=== PATIENT | male | born 1955 | race Caucasian/White ===

== ENCOUNTER → 2016-06-12 | Outpatient (CLI) | payer MEDICARE ==
[~2016-06-12] MED LIST: AMLO10TA2 PO; ASPI325T4 PO; ATOR40TA59 PO; CARV12.52 PO; HYDR25TA9 PO; LISI40TA PO; NITR0.4T SL; WARF5TAB7 PO
--- NOTE | 2016-06-12 12:02 | CARD ---
APPROVED REPORT EXAM: Two-dimensional and M-mode echocardiogram with Doppler and color Doppler. Other Information Quality : ExcellentHR: 60bpm Rhythm : NSR INDICATION CAD RISK FACTORS Hypertension Obesity Family History 2D DIMENSIONS RVDd2.8 (2.9-3.5cm)Left Atrium(2D)4.6 (1.6-4.0cm) IVSd1.1 (0.7-1.1cm)Aortic Root(2D)3.4 (2.0-3.7cm) LVDd5.4 (3.9-5.9cm)LVOT Diameter2.3 (1.8-2.4cm) PWd1.2 (0.7-1.1cm)LVDs3.6 (2.5-4.0cm) FS (%) 34.4 %SV89.9 ml LVEF(%)63.0 (>50%) Aortic Valve AoV Peak Leoncio.136.8cm/sAoV VTI31.5cm AO Peak GR.7.5mmHgLVOT Peak Leoncio.106.4cm/s AO Mean GR.4mmHgAVA (VMAX)3.14cm2 Mitral Valve MV E Wpqciwwo61.2cm/sMV E Peak Gr.4mmHg MV DECEL [id number] A Kionntwd07.8cm/s MV E Mean Gr.2mmHgE/A Ratio0.8 MV A Iaukelok651dq Pulmonary Valve PV Peak Swmknbyk603.5cm/s Tricuspid Valve TR P. Edyepxtb897nz/sTR Peak Gr.25mmHg Pulmonary Vein S1 Owgxmqgd97.4cm/sD2 Qgktryuj40.1cm/s PVa hdentdil55zgym LEFT VENTRICLE The left ventricle is normal size. There is mild concentric left ventricular hypertrophy. Left ventri erendira systolic function is normal. The Ejection Fraction is 60-65%. There is normal LV segmental wall m otion. Transmitral Doppler flow pattern is Grade I-abnormal relaxation pattern. RIGHT VENTRICLE The right ventricle is normal size. There is normal right ventricular wall thickness. The right ventr icular systolic function is normal. There is a pacemaker in the RV/RA ATRIA The left atrium size is normal. The right atrium size is normal. The interatrial septum is intact wit h no evidence for an atrial septal defect or patent foramen ovale as noted on 2-D or Doppler imaging. AORTIC VALVE Not well visualized. Doppler and Color Flow revealed no significant aortic regurgitation. There is no significant aortic valvular stenosis. MITRAL VALVE The mitral valve leaflets are mildly thickened. There is no evidence of mitral valve prolapse or sten osis. Doppler and Color Flow revealed mild mitral regurgitation. TRICUSPID VALVE The tricuspid valve is normal in structure and function. Doppler and Color Flow revealed trace tricus pid regurgitation. The pulmonary artery systolic pressure is estimated at 30 mmHg. There is no tricu spid valve stenosis. PULMONIC VALVE Doppler and Color Flow revealed no pulmonic valvular regurgitation. There is no pulmonic valvular robina nosis. GREAT VESSELS The aortic root is normal in size. The ascending aorta is normal in size. The IVC is normal in size a nd collapses >50% with inspiration. PERICARDIAL EFFUSION There is no evidence of significant pericardial effusion. Critical Notification Critical Value: No <Conclusion> Left ventricle systolic function is normal. The Ejection Fraction is 60-65%. There is normal LV segmental wall motion. There is a pacemaker in the RV/RA
== END | disposition home or self-care (01) ==
LOC: ECHO 08:00
PROVIDERS: ATTEND Internal Medicine Cardiovascular Disease
DX: I25.118 Atherosclerotic heart disease of native coronary artery with other forms of angina pectoris (principal); I10 Essential (primary) hypertension; E66.9 Obesity, unspecified; Z82.49 Family history of ischemic heart disease and other diseases of the circulatory system
CPT/HCPCS: 93306

== ENCOUNTER → 2016-06-25 | Outpatient (CLI) | payer MEDICARE ==
[~2016-06-25] MED LIST changes: +IOHEXOL 300 MG/ML 75 ML VIAL IV ONE
--- NOTE | 2016-06-25 12:10 | RAD ---
CT study of the abdomen and pelvis with and without contrast Clinical indications: Hematuria. CT urogram. Technique: Noncontrast helical CT scanning of the abdomen and pelvis was performed. Following IV infusion of 75 cc of Omnipaque 300, helical CT scanning of the abdomen and pelvis was performed using the CT urogram protocol. A 3-D reconstructed CT urogram was generated. PQRS Compliance Statement: One or more of the following individualized dose reduction techniques were utilized for this examination: 1. Automated exposure control 2. Adjustment of the mA and/or kV according to patient size 3. Use of iterative reconstruction technique Comparison: None available. Findings: No urinary tract stone or hydronephrosis or hydroureter is seen. There is a 1.4 cm hypodense nodule of the lateral mid aspect of the right kidney which measures 5 Hounsfield units consistent with a cyst. There is a smaller subcentimeter hypodense nodule of the lower pole of the right kidney. Due to it's small size, it is indeterminate. No left renal mass is seen. No filling defect of the upper urinary tract is seen on either side. There is mild circumferential wall thickening of the urinary bladder. No other filling defect of the urinary bladder is seen. Prostate gland does not appear to be abnormally enlarged measuring 4.2 cm in greatest transverse dimension. Seminal vesicles are symmetric. There is diffuse fatty infiltration of the liver. The spleen is not enlarged. Fatty atrophy of the pancreas is seen. The gallbladder is normal and no extra hepatic biliary ductal dilatation is seen. No adrenal mass is seen. No focal aneurysmal dilatation of the abdominal aorta is seen. No enlarged abdominal or pelvic lymphadenopathy is seen. The appendix is distended measuring 10 mm in size. No periappendiceal inflammatory change is seen. No obstructive bowel pattern is seen. No free air or free fluid or mesenteric inflammatory change is seen. Mild left lung base atelectasis is seen. Calcified granuloma of the right lateral lung base is seen. No osteolytic process is seen. IMPRESSION: No urinary tract stone or hydronephrosis or hydroureter is seen. Small right renal cyst. Small subcentimeter indeterminate nodule of the lower pole of the right kidney most likely representing another cyst. This may be further evaluated with renal sonography. If this cannot be seen sonographically, then a follow-up abdomen CT with IV contrast in one year is recommended. Mild circumferential wall thickening of the urinary bladder. This may be due to incomplete distention but also be seen with mild cystitis if there are clinical findings of such. Muscle hypertrophy may have this appearance as well although the prostate gland does not appear to be abnormally enlarged and does not indent the floor of the urinary bladder. The appendix is distended measuring up to 10 mm. This may be seen normally but correlation with any clinical findings in this area is recommended. No periappendiceal inflammatory change or free fluid is evident. Fatty infiltration of the liver.
== END | disposition home or self-care (01) ==
LOC: CT 08:46
PROVIDERS: ATTEND Internal Medicine
DX: R31.9 Hematuria, unspecified (principal)
CPT/HCPCS: 74178; Q9967

== ENCOUNTER 2017-10-22 08:21 | Outpatient (CLI) | payer BC ==
[2017-10-22] MEDS ORDERED: ceFAZolin SODIUM 3 GM in IV DEXTROSE 5% 100ML 100 ML IV (09:00)
[2017-10-22] MEDS: BACITRACIN 50,000 UNIT in IV NORMAL SALINE 250ML 250 ML IRR (09:00)
[2017-10-22 09:18] LABS: HEMATOCRIT 42.1 % (39.0-53.0); HEMOGLOBIN 14.6 g/dL (13.0-17.5); MEAN CORPUSCULAR HEMOGLOBIN 32 pg (25-35); MEAN CORPUSCULAR HGB CONC 35 g/dL (31-37); MEAN CORPUSCULAR VOLUME 91 fL (79-100); PLATELET COUNT 260 x10^3/uL (140-400); RED BLOOD COUNT 4.61 x10^6/uL (4.30-5.70); WHITE BLOOD COUNT 8.6 x10^3/uL (4.0-11.0)
[2017-10-22 09:31] LABS: INR 1.5 (0.8-1.1); PROTHROMBIN TIME PATIENT 17.1 SEC (11.7-14.0)
[2017-10-22] MEDS ORDERED: LIDOCAINE 2%/EPI 1:100,000 20 ML VIAL. (09:50)
[2017-10-22] MEDS ORDERED: MIDAZOLAM HCL/PF 2 MG/2 ML VIAL. (10:37)
[2017-10-22] MEDS ORDERED: fentaNYL PF VIAL 100 MCG/2 ML VIAL (10:37)
[2017-10-22] MEDS: LIDOCAINE 2%/EPI 1:100,000 20 ML VIAL. IJ (11:00)
[2017-10-22] MEDS: MIDAZOLAM HCL/PF 2 MG/2 ML VIAL. IV (11:00)
[2017-10-22] MEDS: fentaNYL PF VIAL 100 MCG/2 ML VIAL IV (11:00)
[2017-10-22] MEDS ORDERED: NO ANTICOAGULANT THERAPY. MC (11:15)
== END 2017-10-22 12:45 | disposition home or self-care (01) ==
LOC: CCL 08:21
DX: Z45.02 Encounter for adjustment and management of automatic implantable cardiac defibrillator (principal); I25.5 Ischemic cardiomyopathy; I49.01 Ventricular fibrillation; Z98.890 Other specified postprocedural states; I25.10 Atherosclerotic heart disease of native coronary artery without angina pectoris; Z79.01 Long term (current) use of anticoagulants; I11.0 Hypertensive heart disease with heart failure; I50.9 Heart failure, unspecified; E78.00 Pure hypercholesterolemia, unspecified; I48.91 Unspecified atrial fibrillation; E66.9 Obesity, unspecified; Z68.38 Body mass index [BMI] 38.0-38.9, adult; Z87.442 Personal history of urinary calculi
CPT/HCPCS: 33263; 36415; 85027; 85610; 99152; 99153; C1721; J0690; J2250; J3010; J3490; J7050

== ENCOUNTER → 2018-02-07 | Outpatient (CLI) | payer BC ==
[2017-10-22 12:34] VITALS: BP 155/86
[~2018-02-07] MED LIST changes: +AMIO200T4 PO; -AMLO10TA2 PO; +AMLO10TA6 PO; -ASPI325T4 PO; +ASPI325T8 PO; -IOHEXOL 300 MG/ML 75 ML VIAL IV ONE; +LISI-130 PO; -LISI40TA PO; +WARF-31 PO; +WARF4TAB68 PO; -WARF5TAB7 PO
--- NOTE | 2018-02-07 10:51 | CARD ---
MR#: [id number] Date of Study: 02/07/2018 Ordering Physician: LENI DISLA, Referring Physician: LENI DISLA Tech: Fariha Rizo RDCS APPROVED REPORT EXAM: Two-dimensional and M-mode echocardiogram with Doppler and color Doppler. Other Information Quality : GoodHR: 60bpm Rhythm : NSR INDICATION Arrhythmia 2D DIMENSIONS RVDd4.0 (2.9-3.5cm)Left Atrium(2D)5.4 (1.6-4.0cm) IVSd1.4 (0.7-1.1cm)Aortic Root(2D)3.5 (2.0-3.7cm) LVDd4.5 (3.9-5.9cm)LVOT Diameter1.9 (1.8-2.4cm) PWd1.3 (0.7-1.1cm)LVDs3.2 (2.5-4.0cm) FS (%) 29.9 %SV53.6 ml LVEF(%)57.1 (>50%) M-Mode DIMENSIONS Left Atrium(MM)4.49 (2.5-4.0cm)Aortic Root3.44 (2.2-3.7cm) Aortic Valve AoV Peak Leoncio.124.1cm/sAoV VTI30.5cm AO Peak GR.6.2mmHgLVOT Peak Leoncio.97.9cm/s AO Mean GR.3mmHgAVA (VMAX)2.25cm2 GEM (VTI)2.10cm2 Mitral Valve MV E Jpyazaor90.0cm/sMV E Peak Gr.6mmHg MV DECEL PAEU295pxML A Dhyakuxn454.1cm/s MV E Mean Gr.2mmHgE/A Ratio0.9 MV A Dcolhrrg901wh Pulmonary Valve PV Peak Bjchzmtx782.9cm/s Tricuspid Valve TR P. Gkunvcxl042ci/sRAP GNYAMFBO3ajUv TR Peak Gr.48piTwYXXZ66bdXh Pulmonary Vein S1 Qtdinqas92.5cm/sD2 Guntwdgi42.0cm/s PVa srqfyloo212csvc LEFT VENTRICLE The left ventricle is normal size. There is mild concentric left ventricular hypertrophy. The left ve ntricular systolic function is normal. The Ejection Fraction is 55-60%. There is normal LV segmental wall motion. Transmitral Doppler flow pattern is Grade I-abnormal relaxation pattern. RIGHT VENTRICLE The right ventricle is normal size. There is normal right ventricular wall thickness. The right ventr icular systolic function is normal. ATRIA The left atrium is mildly dilated. The right atrium is mildly dilated. The interatrial septum is inta ct with no evidence for an atrial septal defect or patent foramen ovale as noted on 2-D or Doppler im aging. AORTIC VALVE The aortic valve is calcified but opens well. The aortic valve is trileaflet. Doppler and Color Flow revealed no significant aortic regurgitation. There is no significant aortic valvular stenosis. MITRAL VALVE The mitral valve is thickened but opens well. There is no evidence of mitral valve prolapse. There is no mitral valve stenosis. Doppler and Color-flow revealed trace mitral regurgitation. TRICUSPID VALVE The tricuspid valve is normal in structure and function. Doppler and Color Flow revealed trace to mil d tricuspid regurgitation. The PA pressure was estimated at 31 mmHg. There is no tricuspid valve prol apse or vegetation. PULMONIC VALVE The pulmonary valve is normal in structure and function. Doppler and Color Flow revealed trace pulmon ic valvular regurgitation. There is no pulmonic valvular stenosis. GREAT VESSELS The aortic root is mildly enlarged. The ascending aorta is Mildly dilated. PERICARDIAL EFFUSION There is no evidence of significant pericardial effusion. Fat pad noted. Critical Notification Critical Value: No <Conclusion> The left ventricular systolic function is normal. The Ejection Fraction is 55-60%. There is normal LV segmental wall motion. Pacer wire noted right atrium and right ventricle. Trace mitral regurgitation. Trace to mild tricuspid regurgitation. The PA pressure was estimated at 31 mmHg. There is no evidence of significant pericardial effusion. Signed by : Leni Disla, Electronically Approved : 02/07/2018 10:50:09
== END | disposition home or self-care (01) ==
LOC: ECHO 09:34
PROVIDERS: ATTEND Internal Medicine Cardiovascular Disease
DX: I49.01 Ventricular fibrillation (principal); I11.0 Hypertensive heart disease with heart failure; I50.9 Heart failure, unspecified; E78.00 Pure hypercholesterolemia, unspecified; I25.10 Atherosclerotic heart disease of native coronary artery without angina pectoris; I48.91 Unspecified atrial fibrillation; E66.9 Obesity, unspecified; Z87.442 Personal history of urinary calculi; Z68.38 Body mass index [BMI] 38.0-38.9, adult
CPT/HCPCS: 93306

== ENCOUNTER → 2020-03-27 | Outpatient (CLI) | payer BC ==
[2017-10-22 12:34] VITALS: BP 155/86
[~2020-03-27] MED LIST changes: -AMIO200T4 PO; +AMIO200T6 PO; +AMLO-187 PO; -AMLO10TA6 PO; +CARV12.511 PO; -CARV12.52 PO; +HYDR-2145 PO; -HYDR25TA9 PO; -NITR0.4T SL; +NITR0.4T24 SL; +REGADENOSON 0.4 MG/5 ML DISP.SYRIN. IV ONE
--- NOTE | 2020-03-28 14:08 | RAD ---
MR#: [id number] Date of Study: 03/28/2020 Ordering Physician: LENI LABOY, Referring Physician: STANLEY SANTIAGO Tech: RAQUEL Bernal ARRT (R) (N) APPROVED REPORT Test Type: Pharmacological Stress Nurse/Tech: Antonio Joaquin RN Test Indications: CAD Cardiac History: CAD- [place] x3, PTCA, Increased Cholesterol, PPM, HTN, See EMR Medications: ASA, See EMR Medical History: DM, See EMR Resting ECG: SR Resting Heart Rate: 60 bpm Resting Blood Pressure: 157/81mmHg Pretest Chest Pain: No chest pain Nurse/Tech Notes Lungs CTA, Heart tones regular Pharm. Details Pharmacologic stress testing was performed using 0.4mg per 5ml of regadenoson given intravenously ove r 7-10 seconds. Stress Symptoms No chest pain or symptoms. POST EXERCISE Reason for Termination: Infusion complete Max HR: 75 bpm Max Blood Pressure: 163/79mmHg Blood Pressure response to exercise: Normal blood pressure response during stress. Heart Rate response to exercise: WNL Chest Pain: No. Arrhythmia: No. ST Change: No. INTERPRETATION Stress EKG Conclusion: No evidence of stress induced EKG changes. Imaging Protocol IMAGE PROTOCOL: Rest Tc-99m/stress Tc-99m 2 days Rest: Stress: Viability: Radiopharm.Tc99m FhajyoesrOf45m Sestamibi Whtw75yQe 33mCi Img Date 03/27/2020 03/28/2020 Inj-Img Itrw03xxx. 90min. Rest Admin Site:IV - Left HandAdministrator: RAQUEL Bernal, GEETHAT (R)(N) Stress Admin Site: Roofer Applicator: RT Mary (R)(N) STRESS DATA End Diast. Vol.149.0mlLVEDV index BSA61.0ml End Syst. Vol.58.0mlLVESV index BSA24.0ml Myocardial Rful966.0gEject. Fiwinfyy44.0% Stress Scores Regional WT0.00Summed WT9.00 Regional WM0.00Summed WM4.00 LV Perfusion There is a small fixed apical perfusion defect suggestive of prior infarct versus apical thinning. Wall Motion Normal LV systolic function. EF 65% LV Perf. Quant 17 Seg. SSS3.00 17 Seg. SRS1.00 17 Seg. SDS2.00 Stress Defect Extent (% LAD)6.90Rest Defect Extent (% LAD)0.00Rev. Defect Extent (% LAD)6.90 Stress Defect Extent (% LCX) 0.00Rest Defect Extent (% LCX)0.00Rev. Defect Extent (% LCX)0.00 Stress Defect Extent (% RCA)0.00Rest Defect Extent (% RCA)2.20Rev. Defect Extent (% RCA)0.00 Stress Defect Extent (% MILI)5.20Rest Defect Extent (% MILI)1.70Rev. Defect Extent (% MILI)5.00 Other Information Quality:Good Risk Assessment: Low-Moderate Risk Conclusion 1. No evidence of stress induced EKG changes 2. Small fixed apical defect as noted above. 3. Normal EF at > 55% 4. Low to moderate risk study Signed by : Rob Rod, Electronically Approved : 03/28/2020 14:07:31
== END ==
LOC: NM 09:32
PROVIDERS: ATTEND Internal Medicine Cardiovascular Disease
DX: I25.10 Atherosclerotic heart disease of native coronary artery without angina pectoris (principal); I10 Essential (primary) hypertension; I25.2 Old myocardial infarction
CPT/HCPCS: 78452; A9500; 93017; J2785

== ENCOUNTER → 2020-03-28 | Outpatient (CLI) | payer BC ==
[2017-10-22 12:34] VITALS: BP 155/86
[~2020-03-28] MED LIST changes: -REGADENOSON 0.4 MG/5 ML DISP.SYRIN. IV ONE
--- NOTE | 2020-03-28 13:53 | CARD ---
MR#: [id number] Date of Study: 03/28/2020 Ordering Physician: LENI LABOY, Referring Physician: LENI LABOY, Tech: Theresa Moon APPROVED REPORT EXAM: Two-dimensional and M-mode echocardiogram with Doppler and color Doppler. Other Information Quality : FairHR: 60bpm Technically limited study due to Obesity INDICATION Cardiac Disease: CAD Surgery/Intervention ICD/Pacemaker: Date: RISK FACTORS Hypertension Hyperlipidemia Diabetes 2D DIMENSIONS RVDd3.7 (2.9-3.5cm)Left Atrium(2D)4.1 (1.6-4.0cm) IVSd1.6 (0.7-1.1cm)Aortic Root(2D)3.5 (2.0-3.7cm) LVDd5.9 (3.9-5.9cm)LVOT Diameter2.1 (1.8-2.4cm) PWd1.4 (0.7-1.1cm)LVDs4.0 (2.5-4.0cm) FS (%) 32.4 %SV104.4 ml LVEF(%)59.9 (>50%) Aortic Valve AoV Peak Leoncio.132.7cm/sAoV VTI31.0cm AO Peak GR.7.0mmHgLVOT Peak Leoncio.113.9cm/s LVOT VTI 24.93cmAO Mean GR.4mmHg GEM (VMAX)2.11zt8LNF (VTI)2.87cm2 Mitral Valve MV E Getdbsej53.0cm/sMV DECEL CJLH442rn MV A Blfytgul93.2cm/sMV CDA16og E/A Ratio0.9MVA (PHT)2.98cm2 TDI E/Lateral E'10.1E/Medial E'11.4 Pulmonary Valve PV Peak Sqbajlui195.4cm/sPV Peak Grad.4mmHg Tricuspid Valve TR P. Xlyeryjl605bg/sRAP UPMLBTDZ6mtAt TR Peak Gr.12nyEaXXQB99kmXe Pulmonary Vein S1 Qirnfxkv39.6cm/sD2 Imhhhykz84.9cm/s PVa sgxurlfd402dhfa LEFT VENTRICLE The Left Ventricle is borderline dilated. There is mild to moderate concentric left ventricular hyper trophy. The left ventricular systolic function is normal and the ejection fraction is within normal r sun. The Ejection Fraction is >55%. There is normal LV segmental wall motion. Transmitral Doppler fl ow pattern is Grade I-abnormal relaxation pattern. RIGHT VENTRICLE The right ventricle is normal size. There is normal right ventricular wall thickness. The right ventr icular systolic function is normal. There is a pacemaker lead in the right ventricle. ATRIA The left atrium size is normal. The right atrium size is normal. The interatrial septum is intact wit h no evidence for an atrial septal defect or patent foramen ovale as noted on 2-D or Doppler imaging. AORTIC VALVE The aortic valve is thickened but opens well. Doppler and Color Flow revealed no significant aortic r egurgitation. There is no significant aortic valvular stenosis. Calculated aortic valve area is 2.88 cm2 with maximum pressure gradient of 9 mmHg and mean pressure gradient of 5 mmHg. MITRAL VALVE The mitral valve is normal in structure and function. There is no evidence of mitral valve prolapse. There is no mitral valve stenosis. Doppler and Color-flow revealed trace mitral regurgitation. TRICUSPID VALVE The tricuspid valve is normal in structure and function. Doppler and Color Flow revealed trace tricus pid regurgitation with an estimated PAP of 40 mmHg. There is no tricuspid valve stenosis. PULMONIC VALVE The pulmonic valve is not well visualized. Doppler and Color Flow revealed trace pulmonic valvular re gurgitation. There is no pulmonic valvular stenosis. GREAT VESSELS The aortic root is normal in size. The ascending aorta is normal in size. The IVC is normal in size a nd collapses >50% with inspiration. PERICARDIAL EFFUSION There is no evidence of significant pericardial effusion. Critical Notification Critical Value: No <Conclusion> The left ventricular systolic function is normal and the ejection fraction is within normal range. Th e Ejection Fraction is >55%. There is normal LV segmental wall motion. There is a pacemaker lead in the right ventricle. Signed by : Rob Rod, Electronically Approved : 03/28/2020 13:52:39
== END ==
LOC: ECHO 10:00
PROVIDERS: ATTEND Internal Medicine Cardiovascular Disease
DX: I25.10 Atherosclerotic heart disease of native coronary artery without angina pectoris (principal); I51.7 Cardiomegaly; Z95.0 Presence of cardiac pacemaker
CPT/HCPCS: 93306

== ENCOUNTER → 2021-05-26 | Outpatient (CLI) | payer BC ==
[2017-10-22 12:34] VITALS: BP 155/86
[~2021-05-26] MED LIST changes: +AMIO200T53 PO; -AMIO200T6 PO; +PERFLUTREN PROTEIN-A MICROSPHR 0.22 MG/ML 3 ML VIAL. IV ONE
--- NOTE | 2021-05-26 14:20 | CARD ---
MR#: [id number] Date of Study: 05/26/2021 Ordering Physician: LENI LABOY, Referring Physician: LENI LABOY Tech: Lydia Back JOSH APPROVED REPORT EXAM: Two-dimensional and M-mode echocardiogram with Doppler and color Doppler. Other Information Quality : Technically LimitedHR: 60bpm Rhythm : NSR INDICATION Dyspnea Echo Enhancing Agent Indication: Endocardial border delineation Agent/Amount Used: Optison 2mL Surgery/Intervention Pacemaker: RISK FACTORS Hypertension Obesity Hyperlipidemia Diabetes 2D DIMENSIONS RVDd4.3 (2.9-3.5cm)Left Atrium(2D)4.8 (1.6-4.0cm) IVSd1.7 (0.7-1.1cm)Aortic Root(2D)3.8 (2.0-3.7cm) LVDd4.1 (3.9-5.9cm)LVOT Diameter2.6 (1.8-2.4cm) PWd1.6 (0.7-1.1cm)LVDs3.1 (2.5-4.0cm) FS (%) 26.2 %SV39.2 ml LVEF(%)51.8 (>50%) Aortic Valve AoV Peak Leoncio.113.5cm/sAoV VTI27.4cm AO Peak GR.5.2mmHgLVOT Peak Leoncio.91.3cm/s AO Mean GR.3mmHgAVA (VMAX)4.20cm2 Mitral Valve MV E Mpjgnire39.5cm/sMV DECEL OZYT970je MV A Pwhcrppo87.0cm/sE/A Ratio0.8 Pulmonary Valve PV Peak Vsoizvpz91.1cm/s Tricuspid Valve TR P. Xlbowrzr230md/sTR Peak Gr.25mmHg LEFT VENTRICLE The left ventricle is normal size. There is moderate concentric left ventricular hypertrophy. The lef t ventricular systolic function is normal. Estimated ejection fraction 65%. There is normal LV segmen fausto wall motion. Transmitral Doppler flow pattern is Grade I-abnormal relaxation pattern. RIGHT VENTRICLE The right ventricle is normal size. There is normal right ventricular wall thickness. The right ventr icular systolic function is normal. ATRIA The left atrium size is normal. The right atrium size is normal. The interatrial septum is intact wit h no evidence for an atrial septal defect or patent foramen ovale as noted on 2-D or Doppler imaging. AORTIC VALVE The aortic valve is normal in structure and function. Doppler and Color Flow revealed no significant aortic regurgitation. There is no significant aortic valvular stenosis. MITRAL VALVE The mitral valve is normal in structure and function. There is no evidence of mitral valve prolapse. There is no mitral valve stenosis. Doppler and Color Flow revealed no mitral valve regurgitation note d. TRICUSPID VALVE The tricuspid valve is normal in structure and function. Doppler and Color Flow revealed trace tricus pid regurgitation. Estimated PAP 30 mmHg. There is no tricuspid valve stenosis. PULMONIC VALVE The pulmonary valve is normal in structure and function. Doppler and Color Flow revealed no pulmonic valvular regurgitation. GREAT VESSELS The aortic root is mildly enlarged. The ascending aorta is Mildly dilated. The IVC is normal in size and collapses >50% with inspiration. PERICARDIAL EFFUSION There is no evidence of significant pericardial effusion. Critical Notification Critical Value: No <Conclusion> Technically difficult study. Optison echo contrast used, The left ventricular systolic function is normal. Estimated ejection fraction 65%. There is normal LV segmental wall motion. Pacer wire noted RA/RV. Transmitral Doppler flow pattern is Grade I-abnormal relaxation pattern. Trace tricuspid regurgitation. Estimated PAP 30 mmHg. There is no evidence of significant pericardial effusion. Signed by : Leni Laboy, Electronically Approved : 05/26/2021 14:19:44
== END ==
LOC: ECHO 07:13
PROVIDERS: ATTEND Internal Medicine Cardiovascular Disease
DX: I51.7 Cardiomegaly (principal); I48.0 Paroxysmal atrial fibrillation
CPT/HCPCS: C8929; Q9956